=== PATIENT | male | born 1965 ===

== ENCOUNTER 2021-01-03 09:31 | Observation (INO) ==
[2021-01-03] MEDS ORDERED: Piperacillin/Tazobac ADVAN 3.375 GM in NS 0.9% 100 ml BAG 100 ML IVPB ONE (09:52)
[2021-01-03] MEDS ORDERED: NS 0.9% 1000 ml BAG 2,000 ML IV ONE (09:52)
[2021-01-03 10:43] LABS: ALT 30 U/L (7-52); Albumin 3.9 g/dL (3.2-5.2); Albumin/Globulin Ratio 1.1 (1-3); Alkaline Phosphatase 39 U/L (34-104); BUN/Creatinine Ratio 13.5 (8-20); Blood Urea Nitrogen 15 mg/dL (6-24); C Reactive Protein 175.93 mg/L (<8.01); CO2 Carbon Dioxide 23 mmol/L (22-32); Calcium 8.9 mg/dL (8.6-10.3); Chloride 98 mmol/L (101-111); EGFR African American 82.6 (>60); EGFR Non-African American 68.3 (>60); Globulin 3.5 g/dL (2-4); Glucose 167 mg/dL (70-100); Sodium 129 mmol/L (135-145); Total Protein 7.4 g/dL (6.4-8.9)
[2021-01-03 10:45] LABS: Anion Gap 8 mmol/L (2-11)
[2021-01-03 11:13] LABS: ABS Monocytes 0.9 10^3/ul (0-0.8); ABS Neutrophils 10.4 10^3/ul (1.5-7.7); Hematocrit 40 % (42-52); Hemoglobin 13.3 g/dL (14.0-18.0); Lymphocyte % 8.4 %; Mean Corpuscular HGB Conc 33 g/dL (31-36); Mean Corpuscular Hemoglobin 27 pg (27-31); Mean Corpuscular Volume 82 fL (80-94); Mean Platelet Volume 8.1 fL (7.4-10.4); Platelet Count 191 10^3/uL (150-450); Red Blood Count 4.89 10^6 /uL (4.18-5.48); Red Cell Distribution Width 13 % (10-15); White Blood Count 12.4 10^3/uL (3.5-10.8)
[2021-01-03] MEDS ORDERED: Ondansetron 4 mg VIAL 2 MG/ML 2 ml VIAL IV PRN (12:33)
[2021-01-03] MEDS ORDERED: Enoxaparin 40 MG/0.4 ML SYR SUBCUT SCH (13:00)
[2021-01-03 13:23] LABS: Urine Appearance Cloudy; Urine Bilirubin Negative (Negative); Urine Blood 3+ (Negative); Urine Color Yellow; Urine Glucose Negative (Negative); Urine Ketones Negative (Negative); Urine Nitrite Positive (Negative); Urine Protein Negative (Negative); Urine Specific Gravity 1.019 (1.002-1.030); Urine Urobilinogen Negative (Negative)
[2021-01-03 13:27] LABS: Urine Bacteria 1+ (Absent); Urine Red Blood Cell 3+(>10/hpf) (Absent); Urine White Blood Cell 3+(>20/hpf) (Absent)
[2021-01-03] MEDS: Cefepime 2 GM in Dextrose 2 GM/50 ML BAG IV SCH ×2 (15:09→23:55)
[2021-01-03] MEDS: NS 0.9% 1000 ml BAG 1,000 ML IV SCH (15:09)
[2021-01-03] MEDS ORDERED: Cefepime 2 GM in Dextrose 2 GM/50 ML BAG IV SCH (18:00)
[2021-01-04 06:21] LABS: ABS Lymphocytes 1.5 10^3/ul (1.0-4.8); ABS Monocytes 0.8 10^3/ul (0-0.8); ABS Neutrophils 7.4 10^3/ul (1.5-7.7); Eosinophil % 0.4 %; Hematocrit 40 % (42-52); Hemoglobin 13.3 g/dL (14.0-18.0); Lymphocyte % 15.5 %; Mean Corpuscular HGB Conc 33 g/dL (31-36); Mean Corpuscular Hemoglobin 28 pg (27-31); Mean Corpuscular Volume 83 fL (80-94); Mean Platelet Volume 8.6 fL (7.4-10.4); Platelet Count 174 10^3/uL (150-450); Red Blood Count 4.84 10^6 /uL (4.18-5.48); Red Cell Distribution Width 13 % (10-15); White Blood Count 9.8 10^3/uL (3.5-10.8)
[2021-01-04 06:46] LABS: BUN/Creatinine Ratio 13.7 (8-20); Calcium 8.4 mg/dL (8.6-10.3); EGFR African American 98.9 (>60); EGFR Non-African American 81.7 (>60); Potassium 3.8 mmol/L (3.5-5.0)
[2021-01-04 07:43] VITALS: BP 162/92
[2021-01-04] MEDS: NS 0.9% 1000 ml BAG 1,000 ML IV SCH (08:08)
[2021-01-04] MEDS: Cefepime 2 GM in Dextrose 2 GM/50 ML BAG IV SCH (08:08)
== END 2021-01-04 11:05 | disposition home or self-care (01) ==
LOC: MED 09:31 → ED 09:31 → MED 14:20
PROVIDERS: ADMIT Hospitalist; ATTEND Hospitalist